=== PATIENT | female | born 1965 | race Caucasian/White ===

== ENCOUNTER 2017-10-13 09:45 | Emergency (ER) | payer OTHER ==
[~2017-10-13] VITALS: Ht 160 cm; Wt 69.1 kg
[2017-10-13 09:50] VITALS: TEMP 36.9; Ht 160 cm; Wt 69.1 kg
[2017-10-13] MEDS ORDERED: SODIUM CHLORIDE 0.9% 1000ML 1,000 ML IV SCH (10:01)
[2017-10-13 10:08] VITALS: O2SAT 97
[2017-10-13 10:11] LABS: BASO % 0.8 %; BASO ABS # 0.07 K/uL (0-0.2); EOS % 1.1 %; EOS ABS # 0.09 K/uL (0-0.5); HEMATOCRIT 44.6 % (37-47); HEMOGLOBIN 15.5 g/dL (12.0-16.0); IG# 0.02 K/uL (0.00-0.02); LYMPH % 36.8 %; LYMPH ABS # 3.08 K/uL (1.2-3.4); MEAN CELL VOLUME 88.7 fL (80-100); MEAN CORPUSCULAR HEMOGLOBIN 30.8 pg (25-34); MEAN CORPUSCULAR HGB CONC 34.8 g/dl (32-36); MEAN PLATELET VOLUME 10.8 fL (7.4-10.4); MONO % 7.2 %; NEUT % 53.9 %; NEUT ABS # 4.52 K/uL (1.4-6.5); PLATELET COUNT 237 K/uL (130-400); RED CELL DISTRIBUTION WIDTH CV 13.4 % (11.5-14.5); RED CELL DISTRIBUTION WIDTH SD 43.5 fL (36.4-46.3); WHITE BLOOD COUNT 8.38 K/uL (4.8-10.8)
[2017-10-13] MEDS ORDERED: PRLSR20 PO (10:12)
[2017-10-13] MEDS ORDERED: HOME1TAB8 (10:12)
[2017-10-13 10:16] LABS: PTT PATIENT 27.7 SECONDS (21.0-31.0)
--- NOTE | 2017-10-13 10:25 | DIAGNOSTIC IMAGING REPORT ---
SINGLE VIEW CHEST CLINICAL HISTORY: Strokelike symptoms. Headache. FINDINGS: An AP, portable, upright chest radiograph is obtained. No prior studies are available for comparison at the time of dictation. The examination is mildly degraded by portable technique and patient rotation. The cardiomediastinal silhouette is unremarkable. The lungs and pleural spaces are clear. No pneumothorax is seen. The bony thorax is grossly intact. IMPRESSION: No active disease in the chest. Electronically signed by: Mike Davis M.D. 10/13/2017 10:24 AM Dictated Date/Time: 10/13/2017 10:23 AM
--- NOTE | 2017-10-13 10:32 | DIAGNOSTIC IMAGING REPORT ---
CT SCAN OF THE BRAIN WITHOUT IV CONTRAST CLINICAL HISTORY: Strokelike symptoms. COMPARISON STUDY: No priors. TECHNIQUE: Unenhanced axial CT scan of the brain is performed from the vertex to the skull base. A dose lowering technique was utilized adhering to the principles of ALARA. CT DOSE: 537.48 mGy.cm FINDINGS: Brain parenchyma: The brain parenchyma is normal in appearance. There is no hemorrhage, mass effect, or evidence of acute territorial ischemia by CT criteria. Perez-white matter is preserved. No extra-axial fluid collection is seen. Ventricles, sulci, cisterns: Normal in configuration. Intracranial vasculature: The visualized intracranial vasculature at the skull base is normal in appearance. Calvarium: Unremarkable. Sinuses and mastoids: The visualized paranasal sinuses are clear. The mastoid air cells are well pneumatized. Orbits: The bony orbits are grossly intact. IMPRESSION: There is no hemorrhage, mass effect, or evidence of acute territorial ischemia by CT criteria. Electronically signed by: Mike Davis M.D. 10/13/2017 10:31 AM Dictated Date/Time: 10/13/2017 10:28 AM
[2017-10-13 10:36] LABS: GLUCOSE 112 mg/dl (70-99)
[2017-10-13 10:37] LABS: BLOOD UREA NITROGEN 15 mg/dl (7-18); CALCIUM 9.3 mg/dl (8.5-10.1); CARBON DIOXIDE 24 mmol/L (21-32); CREATININE 0.95 mg/dl (0.60-1.20); POTASSIUM 3.9 mmol/L (3.5-5.1); SODIUM 137 mmol/L (136-145)
[2017-10-13] MEDS ORDERED: GADAVIST IV PRN (15:15)
--- NOTE | 2017-10-13 15:33 | DIAGNOSTIC IMAGING REPORT ---
BRAIN COMBO CLINICAL HISTORY: 52 years-old Female presenting with CVA symptoms, slurred speech, left hand numbness since this morning. TECHNIQUE: Multisequence, multiplanar MR imaging of the brain was performed before and after the administration of intravenous contrast. IV contrast: 7 mL of Gadavist. COMPARISON: CT head performed earlier the same day. FINDINGS: Ventricles and sulci normal in size. Focus of T2/FLAIR hyperintensity in the white matter of the right frontal lobe as well as a few additional scattered similar appearing foci, likely age-related change. Brain parenchyma otherwise normal in appearance with preserved radford-white differentiation. Minimal tonsillar ectopia. No mass effect or midline shift. No restricted diffusion to suggest acute ischemia. No hemorrhage. No extra-axial fluid collection. T2 skull base flow voids preserved. No abnormal parenchymal enhancement. Bone marrow signal intensity within the calvarium within normal limits. IMPRESSION: 1. No acute intracranial pathology. No abnormal enhancement. Electronically signed by: Barak Negro M.D. 10/13/2017 3:31 PM Dictated Date/Time: 10/13/2017 3:26 PM
--- NOTE | 2017-10-13 15:55 | EMERGENCY ROOM VISIT NOTE ---
History Report prepared by Lior: Michele Alexis Under the Supervision of: Dr. Renetta Hager M.D. First contact with patient: 09:49 Chief Complaint: NEURO SYMPTOMS Stated Complaint: HEADACHE History of Present Illness The patient is a 52 year old female who presents to the Emergency Room with complaints of an episode of neurologic symptoms occurring shortly prior to arrival. Her symptoms included left hand numbness, slurred speech, facial droop , and headache. The patient's symptoms began with left hand numbness while in a meeting. She is employed as a realtor, and states that the meeting was not particularly stressful. She states that her co-workers noticed her speech slur and facial droop. The patient states that she was able to speak her thoughts, and she was able to understand her co-workers. She states that her symptoms lasted for about 15 minutes. She later developed her left hand numbness en route again. The patient denies vomiting, visual changes, chest pain, or SOB. She states that her headache has been present all morning, and she feels it is related to her sinuses. She is a smoker. The patient occasionally uses alcohol. The patient's notes that he currently has the mumps and has been around the patient all week. He was diagnosed last week, and was deemed able to be around people today. Source of History: patient, spouse/significant other Onset: Shortly prior to arrival Symptom Intensity: about 15 minutes Quality: other (neurologic symptoms) Timing: other (episode) Associated Symptoms: + headache, + numbness (left hand), No chest pain, No SOB, No vomiting Note: Negative: visual changes. Positive: slurred speech, and facial droop. Review of Systems See HPI for pertinent positives & negatives. A total of 10 systems reviewed and were otherwise negative. Past Medical & Surgical Medical Problems: (1) GERD (gastroesophageal reflux disease) Family History No pertinent family history stated. Social History Smoking Status: Current Every Day Smoker Alcohol Use: occasionally Marital Status: Housing Status: lives with family Occupation Status: employed Current/Historical Medications Scheduled Omeprazole (Prilosec), 20 MG PO DAILY Miscellaneous Medications Homeopathic Products (Zicam Cold Remedy) Allergies Coded Allergies: Shellfish (Unverified Allergy, Unknown, itchy, stuffy, difficult breathing , vomiting, 10/13/17) Physical Exam Vital Signs Date Time Temp Pulse Resp B/P (MAP) Pulse Ox O2 Delivery O2 Flow Rate FiO2 10/13/17 16:15 80 16 119/78 96 10/13/17 15:41 79 16 95 Room Air 10/13/17 14:00 76 20 110/73 93 Room Air 10/13/17 13:08 66 10/13/17 12:31 85 16 129/84 96 Room Air 10/13/17 11:50 84 16 99/59 94 Room Air 10/13/17 10:52 77 16 117/71 95 Room Air 10/13/17 10:08 97 Room Air 10/13/17 09:50 36.9 102 20 130/71 97 Room Air 10/13/17 09:50 88 Physical Exam Vital signs reviewed. General: Well-appearing female, in no significant distress. Somewhat anxious appearing. Pleasant. HEENT: No scleral icterus, PERRLA, neck supple. Atraumatic. Cardiovascular: Regular rate and rhythm, no extra sounds. Pulmonary: Clear to auscultation bilaterally, normal work of breathing. Abdomen: Soft, nontender, nondistended, positive bowel sounds. Musculoskeletal: Atraumatic, no peripheral edema. Neurologic: Patient awake alert and oriented x 3, full strength in all 4 extremities. Cranial nerves 2 through 12 grossly intact. Skin: Warm, dry, no rash Medical Decision & Procedures ER Provider Diagnostic Interpretation: Radiology results as stated below per my review and radiologist interpretation: SINGLE VIEW CHEST FINDINGS: An AP, portable, upright chest radiograph is obtained. No prior studies are available for comparison at the time of dictation. The examination is mildly degraded by portable technique and patient rotation. The cardiomediastinal silhouette is unremarkable. The lungs and pleural spaces are clear. No pneumothorax is seen. The bony thorax is grossly intact. IMPRESSION: No active disease in the chest. Electronically signed by: Mike Davis M.D. 10/13/2017 10:[address] SCAN OF THE BRAIN WITHOUT IV CONTRAST FINDINGS: Brain parenchyma: The brain parenchyma is normal in appearance. There is no hemorrhage, mass effect, or evidence of acute territorial ischemia by CT criteria. Perez-white matter is preserved. No extra-axial fluid collection is seen. Ventricles, sulci, cisterns: Normal in configuration. Intracranial vasculature: The visualized intracranial vasculature at the skull base is normal in appearance. Calvarium: Unremarkable. Sinuses and mastoids: The visualized paranasal sinuses are clear. The mastoid air cells are well pneumatized. Orbits: The bony orbits are grossly intact. IMPRESSION: There is no hemorrhage, mass effect, or evidence of acute territorial ischemia by CT criteria. Electronically signed by: Mike Davis M.D. 10/13/2017 10:31 AM BRAIN COMBO FINDINGS: Ventricles and sulci normal in size. Focus of T2/FLAIR hyperintensity in the white matter of the right frontal lobe as well as a few additional scattered similar appearing foci, likely age-related change. Brain parenchyma otherwise normal in appearance with preserved perez-white differentiation. Minimal tonsillar ectopia. No mass effect or midline shift. No restricted diffusion to suggest acute ischemia. No hemorrhage. No extra-axial fluid collection. T2 skull base flow voids preserved. No abnormal parenchymal enhancement. Bone marrow signal intensity within the calvarium within normal limits. IMPRESSION: 1. No acute intracranial pathology. No abnormal enhancement. Electronically signed by: Barak Negro M.D. 10/13/2017 3:31 PM Laboratory Results 10/13/17 10:00 Red Blood Count 5.03, Mean Corpuscular Volume 88.7, Mean Corpuscular Hemoglobin 30.8, Mean Corpuscular Hemoglobin Concent 34.8, Mean Platelet Volume 10.8, Neutrophils (%) (Auto) 53.9, Lymphocytes (%) (Auto) 36.8, Monocytes (%) (Auto) 7.2, Eosinophils (%) (Auto) 1.1, Basophils (%) (Auto) 0.8, Neutrophils # (Auto) 4.52, Lymphocytes # (Auto) 3.08, Monocytes # (Auto) 0.60, Eosinophils # (Auto) 0.09, Basophils # (Auto) 0.07 10/13/17 10:00 Test 10/13/17 10:00 10/13/17 10:50 10/13/17 10:57 White Blood Count 8.38 K/uL (4.8-10.8) Red Blood Count 5.03 M/uL (4.2-5.4) Hemoglobin 15.5 g/dL (12.0-16.0) Hematocrit 44.6 % (37-47) Mean Corpuscular Volume 88.7 fL (80-100) Mean Corpuscular Hemoglobin 30.8 pg (25-34) Mean Corpuscular Hemoglobin Concent 34.8 g/dl (32-36) Platelet Count 237 K/uL (130-400) Mean Platelet Volume 10.8 fL (7.4-10.4) Neutrophils (%) (Auto) 53.9 % Lymphocytes (%) (Auto) 36.8 % Monocytes (%) (Auto) 7.2 % Eosinophils (%) (Auto) 1.1 % Basophils (%) (Auto) 0.8 % Neutrophils # (Auto) 4.52 K/uL (1.4-6.5) Lymphocytes # (Auto) 3.08 K/uL (1.2-3.4) Monocytes # (Auto) 0.60 K/uL (0.11-0.59) Eosinophils # (Auto) 0.09 K/uL (0-0.5) Basophils # (Auto) 0.07 K/uL (0-0.2) RDW Standard Deviation 43.5 fL (36.4-46.3) RDW Coefficient of Variation 13.4 % (11.5-14.5) Immature Granulocyte % (Auto) 0.2 % Immature Granulocyte # (Auto) 0.02 K/uL (0.00-0.02) Prothrombin Time 10.1 SECONDS (9.0-12.0) Prothromb Time International Ratio 1.0 (0.9-1.1) Activated Partial Thromboplast Time 27.7 SECONDS (21.0-31.0) Partial Thromboplastin Ratio 1.1 Anion Gap 8.0 mmol/L (3-11) Est Creatinine Clear Calc Drug Dose 63.1 ml/min Estimated GFR () 78.7 Estimated GFR (Non- 67.9 BUN/Creatinine Ratio 15.8 (10-20) Calcium Level 9.3 mg/dl (8.5-10.1) Magnesium Level 2.0 mg/dl (1.8-2.4) Total Creatine Kinase 99 U/L (26-192) Creatine Kinase MB 1.0 ng/ml (0.5-3.6) Creatine Kinase MB Ratio 1.0 (0-3.0) Troponin I < 0.015 ng/ml (0-0.045) Urine Color YELLOW Urine Appearance CLEAR (CLEAR) Urine pH 7.0 (4.5-7.5) Urine Specific Hamilton 1.009 (1.000-1.030) Urine Protein NEG (NEG) Urine Glucose (UA) NEG (NEG) Urine Ketones NEG (NEG) Urine Occult Blood NEG (NEG) Urine Nitrite NEG (NEG) Urine Bilirubin NEG (NEG) Urine Urobilinogen NEG (NEG) Urine Leukocyte Esterase NEG (NEG) Urine Opiates Screen NEG (NEG) Urine Methadone, Qualitative NEG (NEG) Urine Barbiturates NEG (NEG) Urine Phencyclidine (PCP) Level NEG (NEG) Ur Amphetamine/Methamphetamine NEG (NEG) MDMA (Ecstasy) Screen NEG (NEG) Urine Benzodiazepines Screen NEG (NEG) Urine Cocaine Metabolite NEG (NEG) Urine Marijuana (THC) NEG (NEG) Ethyl Alcohol mg/dL < 3.0 mg/dl (0-3) Laboratory results per my review. Medications Administered Medications (Trade) Dose Ordered Sig/Madisyn Route Start Time Stop Time Status Last Admin Dose Admin Sodium Chloride 1,000 ml @ 100 mls/hr Q10H IV 10/13/17 10:01 10/13/17 16:36 DC 10/13/17 10:48 100 MLS/HR ECG Per My Interpretation Indication: other (neurologic symptoms) Rate (beats per minute): 85 Rhythm: normal sinus, sinus with SA Findings: other (No PVCs. No ST elevations. ) ED Course 0954: Past medical records reviewed. The patient was evaluated in room B3B. A complete history and physical examination was performed. 1001: Ordered Sodium Chloride 1000 ml @ 100 mls/hr IV. 1515: Ordered Gadavist 7 mmol IV. 1555: Upon reevaluation, the patient appeared to have improvement of her symptoms. I discussed findings with her. She verbalized agreement of the treatment plan. The patient was discharged home. Medical Decision Differential diagnosis: Etiologies such as metabolic, infection, hypo/hyperglycemia, electrolyte abnormalities, cardiac sources, intracerebral event, toxicologic, neurologic, as well as others were entertained. This patient was evaluated and appeared to be in a nursing. It seems that the patient's symptoms have resolved since arrival to the ER. Chest x-ray was obtained and is clear. IV access was obtained and laboratory work was drawn. The patient was hydrated with normal saline solution. CT scan of the patient's head is negative for acute pathology. EKG reveals a sinus rhythm. There is no evidence of acute ischemic change. Given the patient's age and concerning symptoms, an MRI brain combo was performed in the emergency department. This study is also negative for acute pathology. After multiple hours in the emergency department, the patient had no recurrence of symptoms. She was advised to begin daily aspirin therapy and follow-up with her PCP this week for reevaluation and the need for further testing. She was advised to return to the ED immediately if recur she was discharged to the care of her and expressed an understanding of the plan. Medication Reconcilliation Current Medication List: was personally reviewed by me Blood Pressure Screening Patient's blood pressure: Normal blood pressure Blood pressure disposition: Did not require urgent referral Impression Primary Impression: TIA (transient ischemic attack) Scribe Attestation The scribe's documentation has been prepared under my direction and personally reviewed by me in its entirety. I confirm that the note above accurately reflects all work, treatment, procedures, and medical decision making performed by me. Departure Information Dispostion Home / Self-Care Referrals No Doctor, Assigned (PCP) Forms HOME CARE DOCUMENTATION FORM, IMPORTANT VISIT INFORMATION, WORK / SCHOOL INSTRUCTIONS Patient Instructions ED Smoking Cessation, My [facility] Additional Instructions Diagnosis: TIA Please begin aspirin 81 mg daily. Follow-up with your primary care physician this week for reevaluation and consideration of further testing. Please stop smoking as soon as possible. Please refer to the smoking cessation handout. Return to the emergency department immediately for worsening of symptoms or any medical concerns.
[2017-10-13 16:15] VITALS: BP 119/78; PULSE 80; O2SAT 96
== END 2017-10-13 16:16 | disposition home or self-care (01) ==
LOC: EDBD 09:45 → C.EDB 09:46
DX: G45.9 Transient cerebral ischemic attack, unspecified (principal); F17.210 Nicotine dependence, cigarettes, uncomplicated; K21.9 Gastro-esophageal reflux disease without esophagitis; Z79.899 Other long term (current) drug therapy; Z91.013 Allergy to seafood